=== PATIENT | male | born 1975 | race Caucasian/White ===

== ENCOUNTER 2021-03-27 15:36 | Emergency (ER) | payer OTHER ==
[~2021-03-27] VITALS: Ht 175.3 cm; Wt 104.3 kg
[2021-03-27] MEDS ORDERED: KETOROLAC TROMETHAMINE 30 MG/ML VIAL IV STA (16:18)
[2021-03-27] MEDS ORDERED: SODIUM CHLORIDE 0.9% 1000ML 1,000 ML IV SCH (16:30)
[2021-03-27] MEDS ORDERED: AMPICILLIN SOD/SULBACTAM 3GM 100 ML IV ONE (16:30)
[2021-03-27] MEDS ORDERED: SODIUM CHLORIDE 0.9% 250ML 250 ML ONE (16:35)
[2021-03-27] MEDS ORDERED: AMPICILLIN SOD/SULBACTAM 3 GM VIAL ONE (16:35)
[2021-03-27] MEDS ORDERED: DEXAMETHASONE SOD PHOS INJ 4 MG/ML SDV ONE (16:36)
[2021-03-27] MEDS ORDERED: DEXAMETHASONE SOD PHOS INJ 4 MG/ML SDV IV ONE (17:00)
[2021-03-27] MEDS ORDERED: SODIUM CHLORIDE 0.9% 50ML 50 ML ONE (17:12)
[2021-03-27] MEDS ORDERED: IOPAMIDOL 370 MG/ML 200 ML INFUS..BTL INJ ONE (17:12)
[2021-03-27] MEDS ORDERED: AUGMENTIN 875-1 EACH PO (18:35)
[2021-03-27] MEDS ORDERED: HYDROCODON-ACE1 EA12 PO (18:36)
== END 2021-03-27 18:54 | disposition home or self-care (01) ==
LOC: FSED 16:09
DX: L03.211 Cellulitis of face (principal); R22.9 Localized swelling, mass and lump, unspecified; J32.9 Chronic sinusitis, unspecified; D72.829 Elevated white blood cell count, unspecified; I10 Essential (primary) hypertension; Z20.822 Contact with and (suspected) exposure to COVID-19
CPT/HCPCS: 70487; 80053; 85025; 96374; 96376; 99283; J0295; J1100; J1885; J7030; J7050; Q9967; U0002